=== PATIENT | female | born 1940 | race Caucasian/White ===

== ENCOUNTER 2017-10-03 02:29 | Inpatient (IN) | payer MEDICARE, OTHER ==
[~2017-10-03] VITALS: Ht 182.9 cm; Wt 68.2 kg
[2017-10-03] MEDS ORDERED: ondansetron 4 MG/5 ML oral solution 5ml CUP PO ONE (03:10)
[2017-10-03] MEDS ORDERED: normal saline 1000ML IV soln IVB ONE (03:10)
[2017-10-03] MEDS ORDERED: morphine 4 MG/ML inj SYRINge IV ONE (03:10)
[2017-10-03 03:40] LABS: BASOPHILS % (AUTO) 0.5 % (0-1); EOSINOPHILS # (AUTO) 0.1 X10'3 (0-0.9); EOSINOPHILS % (AUTO) 1.3 % (0-6); HEMATOCRIT 39.9 % (35.0-45.0); HEMOGLOBIN 13.4 g/dl (12.0-16.0); LYMPHOCYTES % (AUTO) 10.4 % (21-51); MEAN CORPUSCULAR HEMOGLOBIN 29.4 PG (27.0-31.0); MEAN CORPUSCULAR HGB CONC 33.6 % (33.0-36.5); MEAN CORPUSCULAR VOLUME 87.6 FL (78-98); MEAN PLATELET VOLUME 10.6 FL (7.4-10.4); MONOCYTES # (AUTO) 0.5 X10'3 (0-0.9); NEUTROPHILS % (AUTO) 82.8 % (42-75); PLATELET COUNT 184 X10'3 (140-440); RED BLOOD COUNT 4.55 X10'6 (4.20-5.60); RED CELL DISTRIBUTION WIDTH 15.8 % (11.5-14.5); WHITE BLOOD COUNT 9.7 X10'3 (4.5-11.0)
[2017-10-03 03:45] LABS: CLARITY,URINE CLOUDY (Clear); COLOR,URINE YELLOW (Yellow); GLUCOSE, URINE NEGATIVE (Neg); KETONES,URINE TRACE mg/dl (Neg); LEUKOCYTE ESTERASE ,URINE NEGATIVE (Neg); NITRITES, URINE NEGATIVE (Neg); OCCULT BLOOD,URINE NEGATIVE (Neg); PROTEIN,URINE 100 mg/dl (Neg)
[2017-10-03 03:49] LABS: INR 1.2 INR; PARTIAL THROMBOPLASTIN TIME 23 SECONDS (22-32); PROTHROMBIN TIME 12.6 SECONDS (9.0-12.0)
[2017-10-03 03:56] LABS: UA COLLECTION TYPE STRAIGHT CATH
[2017-10-03 04:02] LABS: ALBUMIN 3.8 G/DL (3.4-5.0); ANION GAP 16 (8-16); BILIRUBIN,TOTAL 1.5 MG/DL (0.1-1.0); BLOOD UREA NITROGEN 48 MG/DL (7-18); BUN/CREATININE RATIO 24.7 (6.6-38.0); CALCIUM 9.6 MG/DL (8.5-10.1); CHLORIDE 99 MMOL/L (99-107); CREATINE KINASE 260 U/L (26-192); CREATININE 1.94 MG/DL (0.40-0.90); GLUCOSE 191 MG/DL (70-104); MAGNESIUM 2.2 MG/DL (1.5-2.4); PHOSPHORUS 6.9 MG/DL (2.3-4.5); POTASSIUM 4.9 MMOL/L (3.5-5.1); SODIUM 136 MMOL/L (135-145); TOTAL CARBON DIOXIDE 20.8 MMOL/L (24-32); TOTAL PROTEIN 6.8 G/DL (6.4-8.2); eGFR 25 ML/MIN
[2017-10-03 04:03] LABS: ALANINE AMINOTRANSFERASE 233 U/L (12-78); ALBUMIN/GLOBULIN RATIO 1.3 (1.1-1.5); ALKALINE PHOSPHATASE 104 IU/L (46-116); ASPARTATE AMINO TRANSFERASE 283 U/L (10-37)
[2017-10-03] MEDS ORDERED: aspirin 81mg tab.chew PO ONE (04:15)
[2017-10-03 04:28] LABS: WBC,URINE 0-4 /HPF (0-4)
[2017-10-03 04:29] LABS: AMORPHOUS URATES 4+; BACTERIA,URINE FEW /HPF (Neg); MUCUS STRANDS FEW /LPF (Neg); RBC,URINE NONE SEEN /HPF (0-2); RENAL CELLS, URINE FEW /HPF; SQUAMOUS EPITHELIAL CELL,UR MANY /LPF (FEW); TRANSITIONAL EPI CELLS,URINE FEW /HPF
[2017-10-03 04:30] LABS: HYALINE CASTS 0-3 /LPF (NEGATIVE)
[2017-10-03] MEDS ORDERED: NO HOME MEDS (04:53)
[2017-10-03] MEDS ORDERED: heparin 10,000 units/1 ML INJ IV ONE ×2 (05:35→07:15)
[2017-10-03] MEDS ORDERED: heparin 10,000 units/1 ML INJ IV PRN ×2 (05:35→07:15)
[2017-10-03] MEDS ORDERED: MORPHINE 2MG in 2ml NS syringe IV STA (06:52)
[2017-10-03] MEDS ORDERED: ondansetron/PF 4mg/2ml inj IV ONE ×2 (06:55→14:35)
[2017-10-03] MEDS ORDERED: morphine 4 MG/ML inj SYRINge IV STA (07:00)
[2017-10-03] MEDS ORDERED: aminophylline 250mg/10ml inj. IV PRN (07:10)
[2017-10-03] MEDS ORDERED: nitroGLYCERIN 0.4mg SUBLingual tab SL PRN (07:10)
[2017-10-03] MEDS ORDERED: metoprolol tartrate 1mg/ml inj IV PRN (07:10)
[2017-10-03] MEDS ORDERED: regadenoson 0.4mg/5ml syringe IV ONE (07:10)
[2017-10-03] MEDS ORDERED: magnesium hydroxide 30ml (MOM) UD suspension PO PRN (07:15)
[2017-10-03] MEDS ORDERED: morphine 4 MG/ML inj SYRINge IV PRN ×2 (07:15→14:55)
[2017-10-03] MEDS ORDERED: magnesium 2GM in 50ml NS 50 ML IV PRN (07:15)
[2017-10-03] MEDS ORDERED: ipratropium/albuterol 3ml nebule NEB PRN (07:15)
[2017-10-03] MEDS ORDERED: acetaminophen 325mg tablet PO PRN (07:15)
[2017-10-03] MEDS ORDERED: magnesium 4gm in 100ml NS 100 ML IV PRN (07:15)
[2017-10-03] MEDS ORDERED: mag hydrox/Alum hydrox/simeth 30ml oral suspension PO PRN (07:15)
[2017-10-03] MEDS ORDERED: potassium Cl 40MEQ/NS 500ml 500 ML IV PRN ×2 (07:15)
[2017-10-03] MEDS ORDERED: potassium Cl 20 mEq SR tablet PO PRN ×2 (07:15)
[2017-10-03 07:49] LABS: ALANINE AMINOTRANSFERASE 391 U/L (12-78); ALBUMIN 3.6 G/DL (3.4-5.0); ALBUMIN/GLOBULIN RATIO 1.4 (1.1-1.5); ALKALINE PHOSPHATASE 98 IU/L (46-116); ANION GAP 16 (8-16); ASPARTATE AMINO TRANSFERASE 481 U/L (10-37); BILIRUBIN,TOTAL 1.4 MG/DL (0.1-1.0); BLOOD UREA NITROGEN 48 MG/DL (7-18); BUN/CREATININE RATIO 28.1 (6.6-38.0); CALCIUM 9.1 MG/DL (8.5-10.1); CHLORIDE 101 MMOL/L (99-107); CREATININE 1.71 MG/DL (0.40-0.90); GLUCOSE 152 MG/DL (70-104); POTASSIUM 4.8 MMOL/L (3.5-5.1); SODIUM 138 MMOL/L (135-145); TOTAL CARBON DIOXIDE 20.9 MMOL/L (24-32); TOTAL PROTEIN 6.2 G/DL (6.4-8.2); eGFR 29 ML/MIN
[2017-10-03] MEDS ORDERED: normal saline 1000ml 1,000 ML IV SCH (07:50)
[2017-10-03] MEDS ORDERED: K and/or MAG REPLACEMENT MC SCH (08:00)
[2017-10-03 09:18] LABS: LARGE PLATELETS FEW; PLATELET ESTIMATE NORMAL
[2017-10-03] MEDS ORDERED: carVEDilol 3.125mg tablet PO SCH (09:25)
[2017-10-03 10:18] LABS: CHOL/HDL RATIO 3.3 (0.00-4.99); CHOLESTEROL 160 MG/DL (0-200); HDL CHOLESTEROL 49 MG/DL (35-60); LDL CHOLESTEROL 105 MG/DL (50-100); TRIGLYCERIDES 72 MG/DL (20-135)
[2017-10-03] MEDS: ondansetron/PF 4mg/2ml inj IV PRN (12:14)
[2017-10-03 12:49] LABS: PARTIAL THROMBOPLASTIN TIME 34 SECONDS (22-32)
[2017-10-03 20:00] VITALS: BP 110/45
[2017-10-04 07:00] VITALS: BP 112/79
[2017-10-04] MEDS ORDERED: aspirin 81mg tablet.DR PO SCH (08:30)
[2017-10-04] MEDS: ondansetron/PF 4mg/2ml inj IV PRN (08:51)
[2017-10-04 19:00] VITALS: BP 104/34
[2017-10-04] MEDS: morphine 4 MG/ML inj SYRINge IV PRN (19:00)
[2017-10-05] MEDS: miconazole nitrate 2% 45gm VAG cream VG SCH (11:37)
[2017-10-05] MEDS ORDERED: aspirin 325mg tablet PO ONE ×2 (14:00→20:00)
[2017-10-05 16:30] LABS: CREATININE 3.33 MG/DL (0.40-0.90); POTASSIUM 5.8 MMOL/L (3.5-5.1); eGFR 13 ML/MIN
[2017-10-05 18:00] VITALS: BP 105/53
[2017-10-05] MEDS: carVEDilol 3.125mg tablet PO SCH (20:00)
[2017-10-06 07:00] VITALS: BP 108/42
[2017-10-06] MEDS: carVEDilol 3.125mg tablet PO SCH ×2 (08:00→20:11)
[2017-10-06] MEDS: lisinopril 2.5mg tablet PO SCH (08:00)
[2017-10-06] MEDS: aspirin 325mg tablet PO SCH (08:30)
[2017-10-06] MEDS: spironolactone 25 MG tablet PO SCH (08:30)
[2017-10-06] MEDS: morphine 4 MG/ML inj SYRINge IV PRN (14:25)
[2017-10-06 20:00] VITALS: BP 110/55
[2017-10-06] MEDS: miconazole nitrate 2% 45gm VAG cream VG SCH (20:12)
[2017-10-07] MEDS: lisinopril 2.5mg tablet PO SCH (08:00)
[2017-10-07] MEDS: aspirin 325mg tablet PO SCH (08:30)
[2017-10-07] MEDS: carVEDilol 3.125mg tablet PO SCH (08:57)
[2017-10-07] MEDS: spironolactone 25 MG tablet PO SCH (11:05)
[2017-10-07 11:06] LABS: BASOPHILS % (AUTO) 0.4 % (0-1); EOSINOPHILS # (AUTO) 0.1 X10'3 (0-0.9); HEMATOCRIT 34.6 % (35.0-45.0); HEMOGLOBIN 11.7 g/dl (12.0-16.0); LYMPHOCYTES # (AUTO) 0.4 X10'3 (1.1-4.8); LYMPHOCYTES % (AUTO) 4.6 % (21-51); MEAN CORPUSCULAR HEMOGLOBIN 29.2 PG (27.0-31.0); MEAN CORPUSCULAR HGB CONC 33.8 % (33.0-36.5); MEAN CORPUSCULAR VOLUME 86.2 FL (78-98); MEAN PLATELET VOLUME 11.2 FL (7.4-10.4); MONOCYTES # (AUTO) 0.6 X10'3 (0-0.9); NEUTROPHILS # (AUTO) 8.3 X10'3 (1.8-7.7); PLATELET COUNT 86 X10'3 (140-440); RED BLOOD COUNT 4.01 X10'6 (4.20-5.60); RED CELL DISTRIBUTION WIDTH 16.6 % (11.5-14.5); WHITE BLOOD COUNT 9.4 X10'3 (4.5-11.0)
[2017-10-07 11:28] LABS: ALBUMIN 3.1 G/DL (3.4-5.0); ALBUMIN/GLOBULIN RATIO 1.2 (1.1-1.5); ALKALINE PHOSPHATASE 92 IU/L (46-116); ANION GAP 10 (8-16); ASPARTATE AMINO TRANSFERASE 476 U/L (10-37); BILIRUBIN,TOTAL 2.4 MG/DL (0.1-1.0); BLOOD UREA NITROGEN 89 MG/DL (7-18); BUN/CREATININE RATIO 44.7 (6.6-38.0); CALCIUM 8.3 MG/DL (8.5-10.1); CHLORIDE 97 MMOL/L (99-107); CREATININE 1.99 MG/DL (0.40-0.90); GLUCOSE 145 MG/DL (70-104); SODIUM 133 MMOL/L (135-145); TOTAL CARBON DIOXIDE 25.7 MMOL/L (24-32); TOTAL PROTEIN 5.6 G/DL (6.4-8.2); eGFR 24 ML/MIN
[2017-10-07 11:32] LABS: ALANINE AMINOTRANSFERASE 1207 U/L (12-78)
[2017-10-07 11:48] LABS: PLATELET ESTIMATE DECREASED; POLYCHROMASIA 1+
[2017-10-07 11:49] LABS: ACANTHOCYTES FEW; ANISOCYTOSIS 1+; BURR CELLS FEW; ELLIPTOCYTES 1+; POIKILOCYTOSIS 1+
[2017-10-07] MEDS ORDERED: SPIR25TA3 PO (13:17)
[2017-10-07] MEDS ORDERED: MONVCR VG (13:17)
[2017-10-07] MEDS ORDERED: LISI2.5T2 PO (13:17)
[2017-10-07] MEDS ORDERED: COR3.125T PO (13:17)
[2017-10-07] MEDS ORDERED: ASPI-1 PO (13:17)
== END 2017-10-07 14:15 | disposition hospice, home (50) | DRG 280 ==
LOC: ER 02:31 → ED HOLD 07:13 → EDBEDREQ 07:52 → EDBEDREQSVC 15:59 → SUR 3N 18:03
PROVIDERS: ADMIT Family Medicine; ATTEND Emergency Medicine
DX: I21.4 Non-ST elevation (NSTEMI) myocardial infarction (principal); I50.23 Acute on chronic systolic (congestive) heart failure; N17.9 Acute kidney failure, unspecified; G71.0 Muscular dystrophy; I42.0 Dilated cardiomyopathy; N18.3 Chronic kidney disease, stage 3 (moderate); K72.90 Hepatic failure, unspecified without coma; B17.9 Acute viral hepatitis, unspecified; I13.0 Hypertensive heart and chronic kidney disease with heart failure and stage 1 through stage 4 chronic kidney disease, or unspecified chronic kidney disease; I48.91 Unspecified atrial fibrillation; I71.2 Thoracic aortic aneurysm, without rupture; E86.0 Dehydration; I08.0 Rheumatic disorders of both mitral and aortic valves; I44.7 Left bundle-branch block, unspecified; R74.0 Nonspecific elevation of levels of transaminase and lactic acid dehydrogenase [LDH]; K82.8 Other specified diseases of gallbladder; Z51.5 Encounter for palliative care; Z66 Do not resuscitate; Z79.82 Long term (current) use of aspirin; Z82.49 Family history of ischemic heart disease and other diseases of the circulatory system; Z82.5 Family history of asthma and other chronic lower respiratory diseases
CPT/HCPCS: 36415; 71045; 71250; 74176; 76700; 80053; 80061; 81001; 82140; 82550; 82565; 83735; 83880; 84100; 84132; 84484; 85025; 85610; 85730; 87070; 93005; 93306; 94760; 96361; 96365; 99291; A4315; A6212; A6213; J1644; J2270; J2405; J7030